=== PATIENT | female | born 1990 | race African-American/Black ===

== ENCOUNTER 2021-10-14 20:06 | Emergency (ER) | payer OTHER ==
[2021-10-14 22:30] LABS: Hemoglobin 9.5 g/dL (12.0-15.5); Mean Corpuscular HGB CONC 32.1 g/dL (32.0-36.0); Mean Corpuscular Hemoglobin 26.6 pg (27.0-33.0); Mean Corpuscular Volume 82.9 fl (81.6-98.3); Mean Platelet Volume 9.3 fl (7.4-10.4); Platelet Count 409 10x3/uL (150-450); RBC Distribution Width 17.5 % (11.5-14.5); Red Blood Cell (RBC) Count 3.57 10x6/uL (3.90-5.03)
[2021-10-14 22:36] LABS: BHCG - Serum Negative (NEGATIVE); Pregs Control Background? CLEAR/WHITE (CLR/WHITE); Pregs Control Bar Appear? YES (CONTROL BAR)
[2021-10-14 22:42] LABS: ALT (SGPT) 6 U/L (8-55); AST (SGOT) 10 U/L (5-34); Albumin 3.5 g/dL (3.5-5.0); Alkaline Phosphatase 42 U/L (40-110); Anion Gap 10 mmol/L (10-20); BUN (Urea Nitrogen) 9 mg/dL (7.0-18.7); Bilirubin, Total 0.2 mg/dL (0.2-1.2); Calc. Creatinine Clearance 0 mL/min (70-130); Calcium 8.5 mg/dL (7.8-10.44); Carbon Dioxide 26 mmol/L (22-29); Chloride 105 mmol/L (98-107); Globulin 3.8 g/dL (2.4-3.5); Glucose 89 mg/dL (70-105); Potassium 3.7 mmol/L (3.5-5.1); Protein, Total 7.3 g/dL (6.0-8.3); Sodium 137 mmol/L (136-145)
[2021-10-14 22:45] LABS: MDiff Complete? YES
[2021-10-14 22:48] LABS: Band 1 % (5-11); Eosinophils 2 % (0-10); Lymphocytes 33 % (21-51); Monocytes 1 % (0-10); Neutrophil 62 % (42-75)
[2021-10-14 22:49] LABS: Platelet Morphology Comment Appears Adequate; RBC Morphology Normal
[2021-10-14] MEDS ORDERED: HYDROcodone/Acetaminophen 5/325 mg Tablet ONE (23:04)
== END 2021-10-14 23:55 | disposition home or self-care (01) ==
LOC: CSHERS 20:06
DX: R10.2 Pelvic and perineal pain (principal); D64.9 Anemia, unspecified; I48.91 Unspecified atrial fibrillation; Z79.01 Long term (current) use of anticoagulants
CPT/HCPCS: 36415; 76856; 80053; 84703; 85025; 87480; 87510; 87660

== ENCOUNTER 2022-01-08 08:48 | Emergency (ER) | payer OTHER ==
[2022-01-08 18:25] LABS: SARS-CoV-2 PCR by NAA Not Detected (NotDetected)
== END 2022-01-08 09:56 | disposition home or self-care (01) ==
LOC: CSHERS 08:48
DX: L04.0 Acute lymphadenitis of face, head and neck (principal); I48.91 Unspecified atrial fibrillation; Z20.822 Contact with and (suspected) exposure to COVID-19
CPT/HCPCS: 93005; U0003; U0005

== ENCOUNTER 2022-03-22 15:01 | Emergency (ER) | payer OTHER ==
[2022-03-22 15:50] LABS: #Basophils 0.1 10x3/uL (0.0-0.2); #Eosinphils 0.1 10x3/uL (0.0-0.5); #Monocytes 0.6 10x3/uL (0.0-1.1); #Neutrophils 8.7 10x3/uL (1.5-8.4); %Basophils 0.4 % (0.0-2.0); %Eosinophils 0.8 % (0.0-6.0); %Lymphocytes 27.5 % (18.0-47.0); %Monocytes 4.3 % (0.0-10.0); %Neutrophils 66.6 % (40.0-75.0); Hemoglobin 10.5 g/dL (12.0-15.5); Mean Corpuscular HGB CONC 32.1 g/dL (32.0-36.0); Mean Corpuscular Hemoglobin 26.3 pg (27.0-33.0); Platelet Count 367 10x3/uL (150-450); RBC Distribution Width 16.9 % (11.5-14.5); Red Blood Cell (RBC) Count 3.99 10x6/uL (3.90-5.03); White Blood Cell (WBC) Count 13.1 10x3/uL (3.5-10.5)
[2022-03-22 16:10] LABS: ALT (SGPT) 9 U/L (8-55); AST (SGOT) 15 U/L (5-34); Albumin 4.4 g/dL (3.5-5.0); Alkaline Phosphatase 43 U/L (40-110); Anion Gap 11 mmol/L (10-20); BUN (Urea Nitrogen) 14 mg/dL (7.0-18.7); Bilirubin, Total 0.5 mg/dL (0.2-1.2); Calc. Creatinine Clearance 0 mL/min (70-130); Calcium 9.4 mg/dL (7.8-10.44); Carbon Dioxide 26 mmol/L (22-29); Chloride 104 mmol/L (98-107); Estimated GFR 80; Globulin 4.2 g/dL (2.4-3.5); Glucose 85 mg/dL (70-105); Lipase 26 U/L (8-78); Potassium 3.7 mmol/L (3.5-5.1); Protein, Total 8.6 g/dL (6.0-8.3); Sodium 137 mmol/L (136-145)
[2022-03-22] MEDS ORDERED: Acetaminophen 500 MG TAB ONE (17:47)
== END 2022-03-22 18:47 | disposition home or self-care (01) ==
LOC: CSHERS 15:01
DX: R07.89 Other chest pain (principal); I48.91 Unspecified atrial fibrillation; Z79.01 Long term (current) use of anticoagulants; Z79.899 Other long term (current) drug therapy
CPT/HCPCS: 71045; 80053; 83690; 84484; 85025; 93005

== ENCOUNTER 2022-04-01 15:08 | Emergency (ER) | payer OTHER ==
[2022-04-01] MEDS ORDERED: Metoclopramide HCl 10 MG/2 ML VIAL ONE (18:10)
[2022-04-01 18:14] LABS: #Basophils 0.1 10x3/uL (0.0-0.2); #Eosinphils 1.3 10x3/uL (0.0-0.5); #Monocytes 0.6 10x3/uL (0.0-1.1); #Neutrophils 6.5 10x3/uL (1.5-8.4); %Basophils 0.7 % (0.0-2.0); %Eosinophils 10.7 % (0.0-6.0); %Lymphocytes 31.1 % (18.0-47.0); %Monocytes 4.9 % (0.0-10.0); %Neutrophils 52.4 % (40.0-75.0); Hemoglobin 8.9 g/dL (12.0-15.5); Mean Corpuscular Hemoglobin 26.3 pg (27.0-33.0); Mean Corpuscular Volume 79.9 fl (81.6-98.3); Mean Platelet Volume 9.2 fl (7.4-10.4); Platelet Count 410 10x3/uL (150-450); RBC Distribution Width 16.7 % (11.5-14.5); Red Blood Cell (RBC) Count 3.38 10x6/uL (3.90-5.03); White Blood Cell (WBC) Count 12.3 10x3/uL (3.5-10.5)
[2022-04-01 18:23] LABS: ALT (SGPT) 12 U/L (8-55); AST (SGOT) 15 U/L (5-34); Albumin 3.7 g/dL (3.5-5.0); Alkaline Phosphatase 41 U/L (40-110); Anion Gap 12 mmol/L (10-20); BUN (Urea Nitrogen) 7 mg/dL (7.0-18.7); Bilirubin, Total 0.4 mg/dL (0.2-1.2); Calc. Creatinine Clearance 0 mL/min (70-130); Calcium 8.5 mg/dL (7.8-10.44); Carbon Dioxide 23 mmol/L (22-29); Chloride 97 mmol/L (98-107); Estimated GFR 99; Globulin 3.5 g/dL (2.4-3.5); Glucose 80 mg/dL (70-105); Potassium 3.6 mmol/L (3.5-5.1); Protein, Total 7.2 g/dL (6.0-8.3); Sodium 128 mmol/L (136-145)
== END 2022-04-01 19:00 | disposition home or self-care (01) ==
LOC: CSHERS 15:08
DX: D64.9 Anemia, unspecified (principal); R20.0 Anesthesia of skin; R20.2 Paresthesia of skin; I48.91 Unspecified atrial fibrillation; Z79.01 Long term (current) use of anticoagulants; Z79.899 Other long term (current) drug therapy
CPT/HCPCS: 80053; 84484; 85025; 93005; 96374; J2765

== ENCOUNTER 2022-09-10 10:51 | Emergency (ER) | payer OTHER ==
[2022-09-10] MEDS ORDERED: Ketorolac Tromethamine 30 MG/ML VIAL ONE (12:36)
== END 2022-09-10 13:44 | disposition home or self-care (01) ==
LOC: CSHERS 10:51
DX: S09.90XA Unspecified injury of head, initial encounter (principal); S60.032A Contusion of left middle finger without damage to nail, initial encounter; W01.10XA Fall on same level from slipping, tripping and stumbling with subsequent striking against unspecified object, initial encounter
CPT/HCPCS: 70450; 96372; J1885

== ENCOUNTER 2022-10-20 07:54 | Emergency (ER) | payer OTHER ==
[2022-10-20] MEDS ORDERED: Acetaminophen 500 MG TAB ONE (09:28)
[2022-10-20] MEDS ORDERED: Morphine 4 MG/ML VIAL ONE (09:28)
== END 2022-10-20 10:28 | disposition home or self-care (01) ==
LOC: CSHERS 07:54
DX: R59.0 Localized enlarged lymph nodes (principal)
CPT/HCPCS: 70450; 96372; J2270